=== PATIENT | female | born 1965 | race American Indian/Alaskan Native ===

== ENCOUNTER 2016-08-29 08:46 | Outpatient (CLI) | payer MEDICARE ==
--- NOTE | 2016-08-29 11:34 | Mammography Report ---
The patient had this exam on the date indicated above. It was indicated to us that previous films should be available that would be helpful in providing optimal evaluation with regards to the current study. A final report will be issued, pending receipt of the prior study. CAD was utilized.
== END 2016-08-29 08:47 | disposition home or self-care (01) ==
LOC: MAMMO 08:46
DX: Z12.31 Encounter for screening mammogram for malignant neoplasm of breast (principal); I10 Essential (primary) hypertension; F17.200 Nicotine dependence, unspecified, uncomplicated
CPT/HCPCS: 77067; G0202

== ENCOUNTER 2016-11-14 06:48 | Emergency (ER) | payer MEDICARE ==
[2016-11-14] MEDS ORDERED: TESSALON PERLES PO ONE (09:06)
--- NOTE | 2016-11-14 09:15 | Emergency Department Report ---
Upper Respiratory HPI - HPI Chief Complaint: Upper Respiratory Infection Stated Complaint: COUGHING & WHEEZING Time Seen by Provider: 11/14/16 08:59 Duration: 6 days URI Symptoms: Rhinorrhea: No, Sore Throat: No, Ear Pain: No, Cough: Yes, Shortness of Breath: No, Sick Contacts: No, Unable to Take Fluids: No, Urine Output Abnormal: No, Listless Behavior: No Other History: This is a 51-year-old female nontoxic, well nourished in appearance, no acute signs of distress presents to the ED complaining of dry cough 6 days. Patient states she develops subjective wheezing only at nighttime. Patient denies any chest pain, shortness of breath, fever, chills, sore throat, mucus production, rhinorrhea, headache, stiff neck, nausea, vomiting, chest pain, numbness or tingling. Patient stated she developed bronchitis yearly during this time of season and is treated with steroids which subsides symptoms. Patient denies any allergies. Past medical history is hypertension that patient has been taking lisinopril for many years without angioedema or cough or side effects. - Home Meds and Allergies Home Medications: Home Medications Medication Instructions Recorded Confirmed Last Taken Lisinopril [Zestril TAB] 20 mg PO QDAY 11/21/12 11/21/12 11/21/12 Topiramate [Topamax TAB] 400 mg PO BID 11/21/12 11/21/12 11/21/12 carBAMazepine [TEGretol] 400 mg PO Q12HR 11/21/12 11/21/12 11/21/12 levETIRAcetam [Keppra TAB] 1,825 mg PO BID 11/21/12 11/21/12 11/21/12 Previous Rx's Medication Instructions Recorded Last Taken Type Azithromycin [Zithromax Z-FRANCES] 250 mg PO DAILY #6 tab 02/26/13 Unknown Rx Prednisone 20 mg PO QDAY #5 tablet 02/26/13 Unknown Rx Promethazine /Codeine 5 ml PO Q6H PRN #60 ml 02/26/13 Unknown Rx [Phenergan/Codeine 6.25-10 mg/5 ml] methOCARBAMOL [Robaxin] 500 mg PO BID #14 tab 02/26/13 Unknown Rx HYDROcodone/APAP 7.5-325 [Stephen 1 each PO Q6HR PRN #20 tablet 10/11/13 Unknown Rx 7.5/325 mg] Ibuprofen [Motrin] 800 mg PO TID PRN #50 tablet 10/11/13 Unknown Rx predniSONE [Deltasone] 50 mg PO QDAY #5 tab 10/11/13 Unknown Rx Diazepam Tab [Valium] 5 mg PO Q6H PRN #21 tablet 01/09/15 Unknown Rx HYDROcodone/APAP 7.5-325 [Stephen 1 each PO Q6HR PRN #20 tablet 01/09/15 Unknown Rx 7.5/325] ALBUTEROL Inhaler [ProAir HFA 2 puff IH QID PRN #1 inhalation 11/14/16 Unknown Rx Inhaler] Benzonatate [Tessalon Perles] 100 mg PO Q8HR #30 capsule 11/14/16 Unknown Rx predniSONE [Deltasone] 40 mg PO QDAY #5 tab 11/14/16 Unknown Rx Allergies/Adverse Reactions: Allergies Allergy/AdvReac Type Severity Reaction Status Date / Time No Known Allergies Allergy Unverified 11/21/12 08:08 ED Review of Systems ROS: Stated complaint: COUGHING & WHEEZING Other details as noted in HPI Constitutional: denies: chills, fever Eyes: denies: eye pain, eye discharge, vision change ENT: denies: ear pain, throat pain Respiratory: cough. denies: shortness of breath, wheezing Cardiovascular: denies: chest pain, palpitations Endocrine: no symptoms reported Gastrointestinal: denies: abdominal pain, nausea, diarrhea Genitourinary: denies: urgency, dysuria, discharge Musculoskeletal: denies: back pain, joint swelling, arthralgia Skin: denies: rash, lesions Neurological: denies: headache, weakness, paresthesias Psychiatric: denies: anxiety, depression Hematological/Lymphatic: denies: easy bleeding, easy bruising ED Past Medical Hx - Past Medical History Previous Medical History?: Yes Hx Hypertension: Yes Hx Seizures: Yes (last seizure was about 2 years ago) Additional medical history: gout - Surgical History Past Surgical History?: No - Social History Smoking Status: Current Every Day Smoker Substance Use Type: Prescribed, Other - Medications Home Medications: Home Medications Medication Instructions Recorded Confirmed Last Taken Type Lisinopril [Zestril TAB] 20 mg PO QDAY 11/21/12 11/21/12 11/21/12 History Topiramate [Topamax TAB] 400 mg PO BID 11/21/12 11/21/12 11/21/12 History carBAMazepine [TEGretol] 400 mg PO Q12HR 11/21/12 11/21/12 11/21/12 History levETIRAcetam [Keppra TAB] 1,825 mg PO BID 11/21/12 11/21/12 11/21/12 History Azithromycin [Zithromax Z-FRANCES] 250 mg PO DAILY #6 tab 02/26/13 Unknown Rx Prednisone 20 mg PO QDAY #5 tablet 02/26/13 Unknown Rx Promethazine /Codeine 5 ml PO Q6H PRN #60 ml 02/26/13 Unknown Rx [Phenergan/Codeine 6.25-10 mg/5 ml] methOCARBAMOL [Robaxin] 500 mg PO BID #14 tab 02/26/13 Unknown Rx HYDROcodone/APAP 7.5-325 [Stephen 1 each PO Q6HR PRN #20 tablet 10/11/13 Unknown Rx 7.5/325 mg] Ibuprofen [Motrin] 800 mg PO TID PRN #50 tablet 10/11/13 Unknown Rx predniSONE [Deltasone] 50 mg PO QDAY #5 tab 10/11/13 Unknown Rx Diazepam Tab [Valium] 5 mg PO Q6H PRN #21 tablet 01/09/15 Unknown Rx HYDROcodone/APAP 7.5-325 [Stephen 1 each PO Q6HR PRN #20 tablet 01/09/15 Unknown Rx 7.5/325] ALBUTEROL Inhaler [ProAir HFA 2 puff IH QID PRN #1 inhalation 11/14/16 Unknown Rx Inhaler] Benzonatate [Tessalon Perles] 100 mg PO Q8HR #30 capsule 11/14/16 Unknown Rx predniSONE [Deltasone] 40 mg PO QDAY #5 tab 11/14/16 Unknown Rx ED Bronchiolitis Physical Exam - Exam General: Vital signs noted. No distress. Alert and acting appropriately. GENERAL: The patient is a well-developed, well-nourished female in no apparent distress. Patient is alert and acting appropriately for age. Alert and oriented 3, no apparent distress, normal gait, atraumatic. HEENT: Head is normocephalic and atraumatic. PERRL, Extraocular muscles are intact. Pupils are equal, round, and reactive to light and accommodation. Nares appeared normal. Mouth is well hydrated and without lesions. Mucous membranes are moist. Posterior pharynx clear of any exudate or lesions. Mouth is well hydrated and without lesions. Tonsils not erythematous or swollen. Uvula midline. Tongue elevated. Mucous members are moist. Posterior pharynx clear, no exudate or lesions. Patent airways. NECK: Supple. No carotid bruits. No lymphadenopathy or thyromegaly.nontender. No meningitic signs are noted. LUNGS: Clear to auscultation. Non labor breathing. No intercostal retractions. Symmetrical with respiration, no wheezing, no rales, or crackles. HEART: Regular rate and rhythm without murmur, rubs or gallops. No reproducible. S1, S2 present, regular rate and rhythm without murmur, no rubs, no gallops. ABDOMEN: Soft, nontender, and nondistended. Positive bowel sounds. No hepatosplenomegaly was noted. No guarding or rebound tenderness, negative epigastric bruit. Negative psoas sign, negative guidry sign, negative McBurneys sign EXTREMITIES: Without any cyanosis, clubbing, rash, lesions or edema. Peripheral pulses intact. Capillary refill less than 2 seconds. Full range of motion bilaterally. NEUROLOGIC: Cranial nerves II through XII are grossly intact. Alert and oriented x 3. Normal gait. Symmetrical strength and sensation. Reflexes 2+ throughout. Cerebellar testing normal. GCS score of 15. PSYCHIATRIC: Normal affect with no suicidal or homicidal ideations. HEENT: No Pharyngeal Erythema, No Conjuctival Injection, No Dry Mucous Membranes , No Rhinorrhea Ear: Neither TM Bulge, Neither TM Erythema, Neither EAC Discharge Neck: No Adenopathy, No Rigidity Lungs: Yes Clear Lung Sounds, Yes Good Air Exchange, Yes Cough, No Wheezes, No Stridor, No Nasal Flaring, No Retractions, No Use of Accessory Muscles Heart: Yes Regular, No Murmur Abdomen: Yes Normal Bowel Sounds, No Tenderness, No Peritoneal Signs Skin: No Rash, No Eczema Neurologic: Alert and oriented, no deficits. Musculoskeletal: Unremarkable. ED Bronchiolitis Tests - Testing Testing: CXR: Normal/Negative ED Physical Exam - General Limitations: No Limitations General appearance: alert, in no apparent distress - Head Head exam: Present: atraumatic, normocephalic, normal inspection - Eye Eye exam: Present: normal appearance, PERRL, EOMI. Absent: scleral icterus, conjunctival injection, nystagmus, periorbital swelling, periorbital tenderness Pupils: Present: normal accommodation - ENT ENT exam: Present: normal exam, normal orophraynx, mucous membranes moist, TM's normal bilaterally, normal external ear exam - Neck Neck exam: Present: normal inspection, full ROM. Absent: tenderness, meningismus, lymphadenopathy, thyromegaly - Respiratory Respiratory exam: Present: normal lung sounds bilaterally. Absent: respiratory distress, wheezes, rales, rhonchi, stridor, chest wall tenderness, accessory muscle use, decreased breath sounds, prolonged expiratory - Cardiovascular Cardiovascular Exam: Present: regular rate, normal rhythm, normal heart sounds. Absent: bradycardia, tachycardia, irregular rhythm, systolic murmur, diastolic murmur, rubs, gallop - GI/Abdominal GI/Abdominal exam: Present: soft, normal bowel sounds. Absent: distended, tenderness, guarding, rebound, rigid, diminished bowel sounds - Rectal Rectal exam: Present: deferred - Extremities Exam Extremities exam: Present: normal inspection, full ROM, normal capillary refill. Absent: tenderness, pedal edema, joint swelling, calf tenderness - Back Exam Back exam: Present: normal inspection, full ROM. Absent: tenderness, CVA tenderness (R), CVA tenderness (L), muscle spasm, paraspinal tenderness, vertebral tenderness, rash noted - Neurological Exam Neurological exam: Present: alert, oriented X3, CN II-XII intact, normal gait, reflexes normal - Psychiatric Psychiatric exam: Present: normal affect, normal mood - Skin Skin exam: Present: warm, dry, intact, normal color. Absent: rash ED Course Vital Signs 11/14/16 07:21 Temperature 98.4 F Pulse Rate 72 Respiratory 20 Rate Blood Pressure 155/71 O2 Sat by Pulse 98 Oximetry - Reevaluation(s) Reevaluation #1: 11/14/16 09:14 Patient is speaking in full sentences with no signs of distress. ED Medical Decision Making - Radiology Data Radiology results: report reviewed interpreted by me: Dictated by radiologist Normal examination - Medical Decision Making This is a 51-year-old female that presents with bronchitis. Patient was examined myself and patient is stable. Patient received Solu-Medrol 125 mg IM in the ED as well as Tessalon Perle. Patient be discharged with prednisone and Tessalon Perles. Patient was instructed to follow-up with primary care doctor in 3-5 days or if symptoms worsen or continue return to emergency room as was possible. At time time of discharge, the patient does not seem toxic or ill in appearance. No acute signs of distress noted. Patient agrees to discharge treatment plan of care. No further questions noted by the patient. Critical care attestation.: If time is entered above; I have spent that time in minutes in the direct care of this critically ill patient, excluding procedure time. ED Disposition Clinical Impression: Bronchitis Disposition: DC-01 TO HOME OR SELFCARE Is pt being admited?: No Does the pt Need Aspirin: No Condition: Stable Instructions: Acute Bronchitis (ED), Prednisone (By mouth), Albuterol (By breathing), Benzonatate (By mouth) Additional Instructions: Follow-up with a primary care doctor in 3-5 days or if symptoms worsen and continue return to emergency room as soon as possible possible. Prescriptions: ALBUTEROL Inhaler [ProAir HFA Inhaler] 2 puff IH QID PRN #1 inhalation PRN Reason: Shortness Of Breath Benzonatate [Tessalon Perles] 100 mg PO Q8HR #30 capsule predniSONE [Deltasone] 40 mg PO QDAY #5 tab Referrals: PRIMARY CAREMD [Primary Care Provider] - 3-5 Days ROLAN CHEN MD [Staff Physician] - 3-[address] [facility] [Outside] - 3-5 Days [facility] [Outside] - 3-5 Days Forms: Work/School Release Form(ED)
--- NOTE | 2016-11-14 10:46 | XRay Report ---
Chest 2 views. History: Cough. Findings: The heart, lungs, and pulmonary vessels are within normal limits.
[2016-11-14 10:53] VITALS: BP 154/86
== END 2016-11-14 10:53 | disposition home or self-care (01) ==
LOC: ED 06:48
DX: J40 Bronchitis, not specified as acute or chronic (principal); I10 Essential (primary) hypertension; F17.210 Nicotine dependence, cigarettes, uncomplicated
CPT/HCPCS: 71020; 96372; 99283; J2930

== ENCOUNTER 2017-01-13 07:23 | Emergency (ER) | payer MEDICARE ==
[2017-01-13 07:31] VITALS: BP 156/86
--- NOTE | 2017-01-13 09:08 | Event Note ---
Date: 01/13/17 no answer [id number]
== END 2017-01-13 08:00 | disposition left against medical advice (07) ==
LOC: ED 07:23
DX: R56.9 Unspecified convulsions (principal); Z53.21 Procedure and treatment not carried out due to patient leaving prior to being seen by health care provider

== ENCOUNTER 2017-04-30 09:38 | Outpatient (CLI) | payer MEDICARE ==
--- NOTE | 2017-04-30 10:09 | XRay Report ---
RIGHT FINGERS, 3 VIEWS History: Right thumb pain. Findings: Mild osteopenia is suspected. The right fingers are intact. There is no evidence for fracture, bone lesion or joint pathology. The soft tissues are unremarkable. Impression: Mild osteopenia. No bony abnormality detected.
== END 2017-04-30 09:39 | disposition home or self-care (01) ==
LOC: XRAY 09:38
DX: M85.88 Other specified disorders of bone density and structure, other site (principal)

== ENCOUNTER 2019-12-23 15:51 | Emergency (ER) | payer MEDICARE ==
--- NOTE | 2019-12-23 16:16 | Event Note ---
ED Screening Note ED Screening Note: went for a mammogram and her BP was elevated she is on hydrochlorothiazide, has not missed any doses has not had her BP checked since February stopped losartan a year ago, her PCP took her off the medication she states her only c/o is fatigue no LUNDBERG, vision changes, no CP, no SOB, no numbness, weakness PMHx HTN, epilepsy, glaucoma no allergies to meds BP is 191/101 This initial assessment/diagnostic orders/clinical plan/treatment(s) is/are subject to change based on patients health status, clinical progression and re- assessment by fellow clinical providers in the ED. Further treatment and workup at subsequent clinical providers discretion. Patient/guardian urged not to elope from the ED as their condition may be serious if not clinically assessed and managed. Initial orders include: labs, UA meds
[2019-12-23 16:17] VITALS: BP 191/101
[2019-12-23 16:56] LABS: Hematocrit 37.4 % (30.3-42.9); Hemoglobin 12.5 gm/dl (10.1-14.3); Mean Corpuscular HGB Conc 33 % (30-34); Mean Corpuscular Volume 91 fl (79-97); Platelet Count 313 K/mm3 (140-440); Red Blood Count 4.13 M/mm3 (3.65-5.03)
[2019-12-23 17:05] LABS: Blood Urea Nitrogen 10 mg/dL (7-17); Hemolysis Index 5
[2019-12-23 17:26] LABS: BUN/Creatinine Ratio 20
[2019-12-23 18:08] LABS: RBC Morphology Normal; Total Cells Counted 100
== END 2019-12-23 19:15 | disposition left against medical advice (07) ==
LOC: ED 15:51
DX: R53.83 Other fatigue (principal); R51.9 Headache, unspecified; Z53.21 Procedure and treatment not carried out due to patient leaving prior to being seen by health care provider
CPT/HCPCS: 36415; 80048; 85007; 85025